=== PATIENT | female | born 1980 | race Caucasian/White ===

== ENCOUNTER → 2017-09-10 | Outpatient (CLI) | payer BC | LOC: SUN.DIA 11:41 | DX: O24.419 Gestational diabetes mellitus in pregnancy, unspecified control (principal); Z3A.31 31 weeks gestation of pregnancy | CPT/HCPCS: G0108 ==

== ENCOUNTER → 2017-09-24 | Outpatient (CLI) | payer BC | LOC: SUN.DIA 11:59 | DX: O24.419 Gestational diabetes mellitus in pregnancy, unspecified control (principal); Z3A.33 33 weeks gestation of pregnancy | CPT/HCPCS: G0108 ==

== ENCOUNTER → 2017-10-12 | Outpatient (CLI) | payer BC | LOC: SUN.DIA 12:06 | DX: O24.419 Gestational diabetes mellitus in pregnancy, unspecified control (principal); Z3A.35 35 weeks gestation of pregnancy | CPT/HCPCS: G0108 ==

== ENCOUNTER → 2020-11-13 | Outpatient (CLI) | payer BC ==
[~2020-11-13] MED LIST: CEPHALEXIN500 M1 PO; ESTARYLLA 35 MC1 TAB PO; MOTRIN 800800 MG/TAB PO; PERCOCET 325 MG1 TA2 PO; PRENATAL MVI; PRENATAL VITAMI1 TAB PO; STOOL SOFTENER100 M1 PO
== END ==
LOC: COL.RAD 11:07
DX: J34.89 Other specified disorders of nose and nasal sinuses (principal); H49.21 Sixth [abducent] nerve palsy, right eye
CPT/HCPCS: A9585

== ENCOUNTER 2020-11-27 08:31 | Outpatient (CLI) | payer BC ==
[2020-11-27] VITALS (8 sets, daily range): BP systolic 111–129; BP diastolic 60–87; PULSE 58–72; TEMP 97.6
[~2020-11-27] VITALS: Ht 157.5 cm; Wt 95.0 kg
--- NOTE | 2020-11-27 10:00 | NUR ---
Report from Beckie SCRUGGS. Transferred from Radiology by beck. Subha to left lower back CD&I. REd top lab obtained by lab. VSS. bedside
[2020-11-27 10:39] LABS: GLUCOSE,CSF 57 mg/dL (40-70)
[2020-11-27 11:35] LABS: CSF APPEARANCE CLEAR; CSF COLOR COLORLESS
[2020-11-27 11:36] LABS: CSF MONONUCLEAR 92 % (70-100); CSF POLYMORPHONUCLEAR 8 % (0-6); CSF RBC 89 /mm3 (0-0)
--- NOTE | 2020-11-27 12:00 | NUR ---
Discharge instructions given. Transferred to private car by sumit and Rani SCRUGGS
[2020-12-02 12:44] LABS: ALBUMIN CSF 17.7 mg/dL (<=27.0)
[2020-12-02 14:58] LABS: CSF IGG/ALBUMIN 0.23 (<=0.21); CSF,IGG 4.1 mg/dL (<=8.1)
[2020-12-02 20:33] LABS: CSF SYNTHESIS RATE 11.73 mg/24 h (<=12); CSF-IGG INDEX 1.21 (<=0.85); IGG/ALBUMIN SERUM 0.19 (<=0.40)
== END 2020-11-27 12:00 | disposition home or self-care (01) ==
LOC: COL.RAD 08:31
PROVIDERS: Psychiatry & Neurology Neurology
DX: H49.21 Sixth [abducent] nerve palsy, right eye (principal); R90.89 Other abnormal findings on diagnostic imaging of central nervous system

== ENCOUNTER → 2021-09-08 | Outpatient (CLI) | payer BC | LOC: COL.RAD 09:11 | DX: G35 Multiple sclerosis (principal); E55.9 Vitamin D deficiency, unspecified; R53.1 Weakness | CPT/HCPCS: A9575 ==

== ENCOUNTER → 2022-05-14 | Outpatient (CLI) | payer BC | LOC: MC.RAD 08:08 | DX: Z12.31 Encounter for screening mammogram for malignant neoplasm of breast (principal) ==